=== PATIENT | male | born 1935 | race Caucasian/White ===

== ENCOUNTER 2017-12-26 10:30 | Emergency (ER) | payer MEDICARE, OTHER ==
[~2017-12-26] VITALS: Ht 175.3 cm; Wt 93.8 kg
[2017-12-26 10:32] VITALS: BP 116/66
== END 2017-12-26 12:31 | disposition home or self-care (01) ==
LOC: ED 12:25
DX: S39.012A Strain of muscle, fascia and tendon of lower back, initial encounter (principal); X58.XXXA Exposure to other specified factors, initial encounter; Y93.89 Activity, other specified; Y92.89 Other specified places as the place of occurrence of the external cause; Y99.8 Other external cause status
CPT/HCPCS: 72110; 99284